=== PATIENT | female | born 1965 | race Caucasian/White ===

== ENCOUNTER 2018-05-30 16:45 | Outpatient (CLI) | payer BC ==
--- NOTE | 2018-05-31 08:30 | Mammography Report ---
Reason: ENCOUNTER FOR SCREENING MAMMOGRAM FOR MALIGNANT NE Procedure Date: 05/30/2018 Accession Number: [id number] / [id number] Procedure: GREGORIA - Screening Mammo w/Long CPT Code: FULL RESULT: EXAM: Screening Mammo w/Long DATE: 05/30/2018 5:10 PM CLINICAL HISTORY: Screening encounter. Family history of breast cancer in the sister at the age of 40. TECHNIQUE: Bilateral CC and MLO views were obtained. COMPARISON: 11/19/2013 and 09/19/2008. FINDINGS: The breasts demonstrate scattered fibroglandular densities bilaterally. There are coarse typically benign calcifications. No suspicious masses, clustered microcalcifications, or regions of architectural distortion are identified. IMPRESSION: Benign findings RECOMMENDATION: Routine annual screening unless otherwise clinically indicated. BIRADS CATEGORY 2: Benign findings STANDARD QUALIFYING STATEMENTS: 1. This examination was not reviewed with the aid of Computer-Aided Detection (CAD). 2. A negative or benign imaging report should not preclude biopsy if clinically suspicious findings are present. 3. Dense breasts may obscure an underlying neoplasm. 4. This examination was reviewed with the aid of 3D breast imaging (tomosynthesis).
== END 2018-05-30 16:46 | disposition home or self-care (01) ==
LOC: DI 16:45
PROVIDERS: ATTEND Physician Assistant
DX: Z12.31 Encounter for screening mammogram for malignant neoplasm of breast (principal); Z80.3 Family history of malignant neoplasm of breast
CPT/HCPCS: 77063; 77067

== ENCOUNTER 2018-07-12 16:21 | Outpatient (CLI) | payer BC ==
[2018-07-12] MEDS ORDERED: IOVERSOL 320 100 ML VIAL IVP ONE ×2 (16:41→17:52)
[2018-07-12] MEDS ORDERED: IOVERSOL 320 50 ML VIAL ONE (16:41)
[2018-07-12] MEDS ORDERED: IOVERSOL 320 50 ML VIAL PO ONE (17:52)
--- NOTE | 2018-07-12 20:38 | CT Report ---
Reason: ABNORMAL RESULTS OF LIVER FUNCTION STUDIES Procedure Date: 07/12/2018 Accession Number: [id number] / [id number] Procedure: CT - Abdomen/Pelvis W CPT Code: FULL RESULT: EXAM: CT ABDOMEN AND PELVIS EXAM DATE: 07/12/2018 05:45 PM. CLINICAL HISTORY: ABNORMAL RESULTS OF LIVER FUNCTION STUDIES. COMPARISONS: None. TECHNIQUE: Routine helical CT imaging was performed through the abdomen and pelvis. IV contrast: OPTI 320 100mL. Enteric contrast: No. Reconstructions: Coronal and sagittal. In accordance with CT protocol optimization, one or more of the following dose reduction techniques were utilized for this exam: automated exposure control, adjustment of mA and/or KV based on patient size, or use of iterative reconstructive technique. FINDINGS: Lung Bases: Patchy atelectasis. Liver: Fatty infiltration of the liver. No focal lesion. Gallbladder/Bile Ducts: Unremarkable. Spleen: Normal. Pancreas: Normal. Adrenal Glands: Normal. Kidneys: Small cortical cysts. No nephrolithiasis or hydronephrosis. Peritoneal Cavity/Bowel: Colonic diverticulosis, without CT evidence of diverticulitis. No free gas, free fluid, or adenopathy. The appendix is well visualized and normal. Pelvic Organs: Normal. The bladder and visualized pelvic organs are within normal limits. Vasculature: No aneurysms or other significant abnormality. Bones: No significant abnormality. Other: None. IMPRESSION: Fatty infiltration of the liver. RADIA
== END 2018-07-12 16:22 | disposition home or self-care (01) ==
LOC: DI 16:21
PROVIDERS: ATTEND Physician Assistant
DX: K76.0 Fatty (change of) liver, not elsewhere classified (principal)
CPT/HCPCS: 74177; Q9967

== ENCOUNTER 2018-07-24 12:02 | Day surgery (SDC) | payer BC ==
[2018-07-24] MEDS ORDERED: LACTATED RINGERS 1,000 ML IV ONE (12:24)
[2018-07-24 14:59] VITALS: BP 108/70
== END 2018-07-24 12:03 | disposition home or self-care (01) ==
LOC: SDS 12:02
PROVIDERS: ATTEND Surgery
PROC: 0DBN8ZZ Excision of Sigmoid Colon, Via Natural or Artificial Opening Endoscopic (ICD-10-PCS; 2018-07-24)
PROC: 3E0H8GC Introduction of Other Therapeutic Substance into Lower GI, Via Natural or Artificial Opening Endoscopic (ICD-10-PCS; 2018-07-24)
PROC: 0DBP8ZZ Excision of Rectum, Via Natural or Artificial Opening Endoscopic (ICD-10-PCS; principal; 2018-07-24 13:00)
DX: Z12.11 Encounter for screening for malignant neoplasm of colon (principal); D12.8 Benign neoplasm of rectum; K51.40 Inflammatory polyps of colon without complications; K57.30 Diverticulosis of large intestine without perforation or abscess without bleeding; Z80.0 Family history of malignant neoplasm of digestive organs
CPT/HCPCS: 45381; 45385; J7120

== ENCOUNTER 2021-08-24 10:53 | Outpatient (CLI) | payer BC ==
--- NOTE | 2021-08-24 16:38 | Mammography Report ---
BILATERAL DIGITAL SCREENING MAMMOGRAM 3D/2D: 08/24/2021 CLINICAL: Routine screening. Family history of breast cancer. Comparison is made to exams dated: 05/30/2018 mammogram and 11/19/2013 mammogram - [facility]. There are scattered fibroglandular elements in both breasts. No significant masses, calcifications, or other findings are seen in either breast. There has been no significant interval change. IMPRESSION: NEGATIVE There is no mammographic evidence of malignancy. A 1 year screening mammogram is recommended. This exam was interpreted at Station ID: [id number]. NOTE: For mammograms, a report in lay terms will be sent to the patient. Approximately 15% of breast malignancies will not be visualized mammographically. In the management of a palpable breast mass, a negative mammogram must not discourage biopsy of a clinically suspicious lesion. Electronically Signed By: Amanda [email or web address]:08/24/2021 11:58:04 ACR BI-RADS Category 1: Negative 3341F PARENCHYMAL PATTERN: (A) - The breast(s) demonstrate(s) scattered fibroglandular densities. BI-RADS CATEGORY: (1) - 1 RECOMMENDATION: (ANNUAL) - Recommend routine annual screening mammography. [id number] 1 year screening LATERALITY: (B)
== END 2021-08-24 10:54 | disposition home or self-care (01) ==
LOC: DI.S 10:53
DX: Z12.31 Encounter for screening mammogram for malignant neoplasm of breast (principal); Z80.3 Family history of malignant neoplasm of breast